=== PATIENT | male | born 1950 | race Caucasian/White ===

== ENCOUNTER 2020-08-11 14:03 | Inpatient (IN) | payer MEDICARE, SELFPAY ==
[2020-08-11] VITALS (7 sets, daily range): BP systolic 113–147; BP diastolic 60–94; PULSE 79–105; RESP 16–23; TEMP 35.8–36.6; O2SAT 96–100; BMI 26.6
--- NOTE | ~2020-08-11 | XR_ITS ---
EXAMINATION: XR abdomen NG/feed tube insert EXAM DATE: 08/13/2020 03:43 INDICATION: Nasogastric tube placement. TECHNIQUE: Frontal projection(s) of the abdomen for interpretation. Comparison is made to prior exami nation from 08/12/2020. FINDINGS: Feeding tube tip and side-port project over left upper quadrant, adequate. Multiple loops of significantly distended air-filled small and large bowel. There are mild bony degenerative changes . IMPRESSION: 1. Feeding tube in position. 2. Significantly distended air-filled small and large bowel. Reviewed, dictated and finalized at location A. 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
--- NOTE | ~2020-08-11 | CT_ITS ---
EXAMINATION: CT abdomen pelvis wo con DATE: 08/11/2020 15:27 INDICATION: Left lower quadrant abdominal pain. Constipation. TECHNIQUE: Computed tomography (CT) of the abdomen and pelvis was performed without intravenous contr ast. Automated exposure control and iterative reconstruction technique were employed. The dose-length product was 716.87 mGy-cm. COMPARISON: CT abdomen and pelvis 11/06/2003 FINDINGS: The visualized portions of lung bases demonstrate mild atelectasis. No pleural effusion. Th ere is left atrial enlargement of the heart. There are coronary artery calcifications. No pericardial effusion. There are numerous cysts in the liver measuring up to 2.8 cm. The gallbladder is distended . The spleen is normal. There are 3 cystic lesions in the pancreas measuring up to 10 mm. The adrenal glands are normal. Elem left kidney is absent. There are innumerable cysts and hemorrhagic cysts i n right kidney. There are multiple masses in right kidney measuring soft tissue attenuation measuring up to 2.9 cm. There are scattered parenchymal calcifications in right kidney. No hydronephrosis. The re is a transplant kidney in right iliac fossa. The prostate is mildly enlarged. There is an anastomo sis in the rectosigmoid. The majority of the colon is distended. The appendix is normal. There are mu ltiple dilated loops of small bowel. The distal sigmoid colon is small in caliber. There are no patho logically enlarged lymph nodes. There is a small volume of ascites. There is mild thoracolumbar spond ylosis. IMPRESSION: 1. Dilated small and large bowel with small caliber distal sigmoid colon suspicious for stricture, wh ich may be benign or malignant. 2. Polycystic kidney disease. Multiple indeterminate masses in right kidney are likely hemorrhagic cy sts, but solid neoplasm cannot be excluded. 3. Gallbladder distention, which may be secondary to fasting. Correlate with physical exam to exclude acute cholecystitis. 4. Small volume of ascites. Reviewed, dictated and finalized at location B. 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 Dilated small and large bowel with small caliber distal sigmoid colon suspic ious for stricture, which may be benign or malignant. 2. Polycystic kidney disease. Multiple indeterminate masses in right kidney are likely hemorrhagic cysts, but solid neoplasm cannot be excluded. 3. Gallbladder distention, which may be secondary to fasting. Correlate with ph ysical exam to exclude acute cholecystitis. 4. Small volume of ascites.
--- NOTE | ~2020-08-11 | XR_ITS ---
EXAMINATION: XR abdomen NG/feed tube insert DATE: 08/12/2020 11:53 INDICATION: Partial bowel obstruction. TECHNIQUE: A supine view of the abdomen was obtained. COMPARISON: CT abdomen and pelvis 08/11/2020 FINDINGS: The lower abdomen is excluded. There is dilated small and large bowel. The nasogastric tube tip is in the stomach. There are parenchymal calcifications in right kidney. IMPRESSION: 1. Nasogastric tube tip in the stomach. 2. Dilated small and large bowel, consistent with distal colonic obstruction. Reviewed, dictated and finalized at location B. 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
--- NOTE | 2020-08-11 14:28 | ECG_ITS ---
Measurements Intervals [place] Rate: 75 P: 42 PA: 159 QRS: -5 QRSD: 93 T: 13 QT: 400 QTc: 447 Interpretive Statements SINUS RHYTHM WITH MARKED RHYTHM IRREGULARITY, POSSIBLE NON-CONDUCTED PAC, SA BLOCK, AV BLOCK, OR SINUS PAUSE POSSIBLE LEFT ATRIAL ENLARGEMENT DELAYED PRECORDIAL R/S TRANSITION BORDERLINE T WAVE ABNORMALITY- INFERIOR LEADS BASELINE WANDER- I, II, AVR, AVL, V1 ABNORMAL ECG Electronically Signed On 08-11-2020 15:07:36 ROW BOSS HOEING by Omid Moreira D.O.
--- NOTE | 2020-08-11 14:31 | ED.ABDPAIN ---
HPI - Abdominal Pain General Chief Complaint: Weakness Stated Complaint: weakness, diarrhea, decreased appetite Time Seen by Provider: 08/11/20 14:09 Source: patient Mode of arrival: ambulatory Limitations: no limitations History of Present Illness HPI narrative: This patient is a 70 year old male with history of kidney transplant, DM who presents for evaluation of constipation and left lower abdominal pain. He reports for the last week he has had constipation. He took 1-2 days of an over the counter stool softener. He states he is having small episodes of loose stool, but it is not like diarrhea. He finally came to the ER today, because last night he was unable to get comfortable. He states he was up multiple times during the night due to discomfort to Left lower abdomen. He reports nausea and hiccups. He denies fever or chills. His pain is 5/10 Related Data Home Medications Medication Instructions Recorded Confirmed ergocalciferol (vitamin D2) 50,000 unit PO MONTHLY 08/11/20 08/11/20 lisinopril 5 mg PO DAILY 08/11/20 08/11/20 losartan 100 mg PO DAILY 08/11/20 08/11/20 metformin 1,000 mg PO DAILY 08/11/20 08/11/20 mycophenolate mofetil 500 mg PO Q12H 08/11/20 08/11/20 pravastatin 40 mg PO HS 08/11/20 08/11/20 prednisone 5 mg PO DAILY 08/11/20 08/11/20 tacrolimus 1 mg PO Q12H 08/11/20 08/11/20 warfarin 2 mg PO Q3-4D 08/11/20 08/11/20 warfarin 4 mg PO DAILY 08/11/20 08/11/20 Allergies Allergy/AdvReac Type Severity Reaction Status Date / Time Sulfa (Sulfonamide Allergy Unknown Unknown Verified 08/11/20 14:20 Antibiotics) Review of Systems Review of Systems: All systems reviewed & are unremarkable except as noted in HPI and below Constitutional: Constitutional: Denies chills, Denies fever(s) and Reports weakness Gastrointestinal: Gastrointestinal: Reports abdominal pain, Reports constipation, Reports diarrhea and Reports nausea PMFSH Past Medical History Medical History (Updated 08/11/20 @ 22:48 by Arielle Villalba MD) Diabetes mellitus Surgical History Surgical History (Updated 08/11/20 @ 14:35 by Arielle Villalba MD) Kidney transplant recipient Social History Social History Smoking status: Former smoker Alcohol intake: never Substance use: never Gender identity (if verbalized by the patient): Male Spiritual care concerns: No Exam Const: General: no acute distress and alert Orientation/consciousness: patient oriented x3 Resp: Effort & Inspection: normal respiratory effort and no retractions Auscultation: clear to auscultation bilaterally GI: Inspection: distended GI Palp: Yes Soft to palpation, Yes Tenderness to palpation present (GI) (LLQ) and No Guarding due to palpation present (GI) Auscultation: Hypoactive bowel sounds present Rectal Exam: hemorrhoids (no fecal impaction, no mass) Neuro: General: patient oriented x3, moves all extremities and CN's II-XI intact bilaterally Psych: Mental Status: mental status grossly normal Affect: normal affect Course Reevaluation(s) Reevaluation #1: I discussed with patient Ct shows stricture that is likely cause of his symptoms. He has not had colonoscopy in over 10 years. He is agreeable to observation and evaluation by GI. He request to stay at [facility] instead of transfer due to transplant. He will get his antirejection meds brought up to hospital. Date: 08/11/20 Time: 17:45 Consultations Consultation #1: I discussed case with Dr. Wayne. He states he will consult if hospitalist will admit. He will likely perform colonoscopy on patient. Date: 08/11/20 Time: 16:43 Consultation #2: I discussed case with Juany Hughes of hospitalist service. She accepts patient to service with GI consults. Date: 08/11/20 Time: 17:35 Vital Signs Vital signs: Vital Signs Temperature 96.4 F L 08/11/20 14:12 Pulse Rate 98 08/11/20 14:12 Respiratory Rate 18 08/11/20 14:12 Blood Pressure 140/94 H 08/11/20 14:12 Pulse Oximetr
[2020-08-11] MEDS: ONDANSETRON INJ 4 MG/2 ML VIAL IV PUSH (14:32)
[2020-08-11 14:43] LABS: Hematocrit 50.7 % (42.0-52.0); Hemoglobin 17.2 g/dL (14.0-18.0); Mean Corpuscular HGB Conc 33.9 g/dl (32-36); Mean Corpuscular Hemoglobin 29.5 pg (26-34); Mean Corpuscular Volume 86.8 fl (80-100); Mean Platelet Volume 12.1 fl (7.4-10.4); Platelet Count Result 236 k/mm3 (150-375); Red Blood Count 5.84 M/mm3 (4.6-6.20); Red Cell Distribution Width 13.2 % (11.5-14.5)
[2020-08-11 14:55] LABS: Alanine Aminotransferase 15 U/L (4-50); Albumin Level 3.7 g/dL (3.5-5.1); Alkaline Phosphatase 70 U/L (38-126); Anion Gap 11 mmol/L (8-16); Aspartate Amino Transferase 21 U/L (17-59); Bilirubin,Total 1.5 mg/dL (0.2-1.3); Blood Urea Nitrogen 29 mg/dL (9-20); Calcium 8.3 mg/dL (8.4-10.2); Carbon Dioxide 24 mmol/L (22-30); Chloride 96 mmol/L (98-107); Estimated CRCL calculation 59 ml/min; Estimated Glomerular Filt Rate > 60; Glucose 231 mg/dL (75-110); Lipase 40 U/L (23-300); Potassium 4.1 mmol/L (3.4-5.0); Sodium 131 mmol/L (137-145)
[2020-08-11] MEDS: SODIUM CHLORIDE 0.9% IV 1,000 ML 999 ML IV CONT (14:57)
[2020-08-11 15:11] LABS: Band Neutrophils Percent 18 % (0-6); Eosinophils Absolute Manual 0.06 K/mm3 (0.02-0.5); Eosinophils Percent Manual 1 % (0-4); Lymphocytes Absolute Manual 0.96 K/mm3 (1.1-4.5); Lymphocytes Percent Manual 16 % (18-44); Monocytes Percent Manual 25 % (3-9); Neutrophils Absolute Manual 3.48 K/mm3 (1.3-6.7); Neutrophils Percent Manual 40 % (46-73); Platelet Estimate Adequate (Adequate); Total Cells Counted 100
[2020-08-11 15:12] LABS: Atypical Lymphocytes Present; Ovalocytes 1+ (NORMAL)
[2020-08-11 15:20] LABS: Add Urine Microscopic? YES; Amorphous Sediment Urine Few; Appearance Urine Clear (Clear); Bacteria Urine Trace /hpf; Bilirubin Urine Negative (Negative); Blood Urine Negative (Negative); Color Urine Amber (Yellow); Glucose Urine UA Negative (Negative); Ketones Urine 1+ mg/dL (Negative); Leukocyte Esterase Ur Negative LEU/UL (Negative); Mucus Urine Rare /lpf; Nitrate Urine Negative (Negative); Protein Urine 1+ mg/dL (Negative); RBC Urine 0-2 /hpf (0-2); Squamous Epithelial Cell Urine Rare /hpf (Few)
[2020-08-11 15:34] LABS: Lactic Acid Reflex 1.6 mmol/L (0.7-2.1)
[2020-08-11] MEDS: SODIUM CHLORIDE 0.9% IV 1,000 ML 125 ML IV CONT (21:47)
--- NOTE | 2020-08-11 22:22 | PC.NURSE ---
This patient, Ryan Lopez, was admitted to Medical Room 245-. Patient/family oriented to hospital policies and general routines including ID bracelet, bed and alarms, visiting hours, pain management, procedures, bathroom and other care routines, personal items, smoking policy, room service/diet, and visiting hours. Information on how to activate the Rapid Response Team has been discussed. Patient/Family are encouraged to report perceived risks to care and to ask questions if they do not understand what they are told or what they should do. Transplant rejection drugs brought in from home.
[2020-08-11 23:34] LABS: Prothrombin Time 51.8 Seconds (11.1-14.7)
[2020-08-11 23:35] LABS: Partial Thromboplastin Time 66.9 SECONDS (22.3-36.8)
[2020-08-12] VITALS (8 sets, daily range): BP systolic 112–152; BP diastolic 55–68; PULSE 77–83; RESP 14–24; TEMP 36.3–37.1; O2SAT 94–100; BMI 26.6
[2020-08-12 00:07] LABS: INR 5.7
--- NOTE | 2020-08-12 00:45 | PM.IMHP ---
H&P: HPI History of Present Illness Date/Time: 08/11/20 23:00 Chief Complaint: abdominal pain Narrative: This is a pleasant 70 year old male with known history of renal transplant, DM, known to be chronically anticoagulated on warfarin after having a previous PE and presented to the hospital with a complaint of lower abdominal pain. The patient has had chronic diarrhea for over a year and had his metformin dose lowered at the end of June. He was initiated on insulin at that time and since then he has had constipation. He took OTC stool softeners and has had small episodes of loose stool over the past day. He complains that his abd discomfort has prevented him for being able to sleep at home and decided to come to the hospital. He denies any fever, chills, shortness of breath, cough, nasuea, vomiting, chest pain, palpitations, dysuria, hematuria, or decreased urine output. CT abd/pelvis revealed a dilated small and large bowel with small caliber distal sigmoid colon suspicious for stricture and gallbladder distention. ER providre has consulted Dr. Wayne, GI and we have been asked to admit the patient to the hospital for further evaluation. His last colonoscopy was in 2003. No other complaints tonight. Review of Systems Review of Systems: All systems reviewed & are unremarkable except as noted in HPI and below PMFSH Past Medical History Medical History (Updated 08/12/20 @ 05:30 by Benoit Odom MD) Diabetes mellitus Pulmonary embolism Surgical History Surgical History (Updated 08/12/20 @ 00:56 by Benoit Odom MD) Kidney transplant recipient Social History Social History Smoking status: Former smoker Alcohol intake: never Substance use: never Gender identity (if verbalized by the patient): Male Spiritual care concerns: No Meds Home Medications and Allergies Home Medications Medication Instructions Recorded Confirmed Type ergocalciferol (vitamin D2) 50,000 unit PO MONTHLY 08/11/20 08/11/20 History lisinopril 5 mg PO DAILY 08/11/20 08/11/20 History losartan 100 mg PO DAILY 08/11/20 08/11/20 History metformin 1,000 mg PO DAILY 08/11/20 08/11/20 History mycophenolate mofetil 500 mg PO Q12H 08/11/20 08/11/20 History pravastatin 40 mg PO HS 08/11/20 08/11/20 History prednisone 5 mg PO DAILY 08/11/20 08/11/20 History tacrolimus 1 mg PO Q12H 08/11/20 08/11/20 History warfarin 2 mg PO Q3-4D 08/11/20 08/11/20 History warfarin 4 mg PO DAILY 08/11/20 08/11/20 History Allergies Allergy/AdvReac Type Severity Reaction Status Date / Time Sulfa (Sulfonamide Allergy Unknown Unknown Verified 08/11/20 14:20 Antibiotics) Vital Signs Vital Signs - 24 hr 08/11/20 14:12 08/11/20 14:19 08/11/20 16:18 Temperature 35.8 C L Pulse Rate 98 98 105 H Respiratory Rate 18 23 H Blood Pressure 140/94 H 113/60 Pulse Oximetry 98 97 08/11/20 17:36 08/11/20 18:23 08/11/20 20:52 Temperature 36.6 C Pulse Rate 93 95 89 Respiratory Rate 18 18 20 Blood Pressure 122/66 120/75 147/66 H Pulse Oximetry 96 100 96 08/11/20 21:53 Temperature 36.6 C Pulse Rate 79 Respiratory Rate 16 Blood Pressure 133/66 Pulse Oximetry 99 Exam Const: General: cooperative, no acute distress, alert, awake and ill appearing chronically Nutritional Appearance: well nourished Orientation/consciousness: patient oriented x3 HENMT: Head: normal to inspection General nose exam: Normal external nose present Face and sinus: normal facial exam Mouth: Yes Normal oral and palatal mucosa present and Yes oropharynx normal Eyes: Pupils: Equal, round and reactive pupils present EOM: EOMs intact bilaterally Neck: Neck: supple and no JVD Thyroid: thyroid normal Lymphatic: lymphadenopathy not noted Resp: Effort & Inspection: normal respiratory effort Auscultation: clear to auscultation bilaterally Cardio: Rate: regular rate Rhythm: regular rhythm Heart sound
[2020-08-12] MEDS: MORPHINE SULFATE (*CRX) 2 MG/ML INJ IV PUSH (01:03)
[2020-08-12] MEDS: PHYTONADIONE INJ 10 MG/ML AMP 5 MG SUB-Q (03:29)
[2020-08-12 05:32] LABS: Hematocrit 47.2 % (42.0-52.0); Hemoglobin 15.8 g/dL (14.0-18.0); Mean Corpuscular HGB Conc 33.5 g/dl (32-36); Mean Corpuscular Hemoglobin 29.3 pg (26-34); Mean Corpuscular Volume 87.4 fl (80-100); Mean Platelet Volume 11.3 fl (7.4-10.4); Platelet Count Result 169 k/mm3 (150-375); Red Cell Distribution Width 13.1 % (11.5-14.5); White Blood Count 3.6 K/mm3 (4.5-10.0)
[2020-08-12 05:40] LABS: Alanine Aminotransferase 10 U/L (4-50); Alkaline Phosphatase 56 U/L (38-126); Anion Gap 10 mmol/L (8-16); Aspartate Amino Transferase 16 U/L (17-59); Bilirubin,Total 0.9 mg/dL (0.2-1.3); Blood Urea Nitrogen 29 mg/dL (9-20); Calcium 7.6 mg/dL (8.4-10.2); Carbon Dioxide 20 mmol/L (22-30); Chloride 102 mmol/L (98-107); Estimated CRCL calculation 64 ml/min; Estimated Glomerular Filt Rate > 60; Glucose 172 mg/dL (75-110); Potassium 4.2 mmol/L (3.4-5.0); Sodium 132 mmol/L (137-145)
[2020-08-12] MEDS: SODIUM CHLORIDE 0.9% IV 1,000 ML 125 ML IV CONT ×2 (05:52→16:02)
[2020-08-12 06:03] LABS: Glucose Point of Care 190 (65-105)
[2020-08-12 06:10] LABS: Band Neutrophils Percent 15 % (0-6); Basophils Absolute Manual 0.03 K/mm3 (0.0-0.1); Basophils Percent Manual 1 % (0-1); Eosinophils Absolute Manual 0.03 K/mm3 (0.02-0.5); Eosinophils Percent Manual 1 % (0-4); Lymphocytes Absolute Manual 0.93 K/mm3 (1.1-4.5); Monocytes Absolute Manual 0.28 K/mm3 (0.1-0.90); Monocytes Percent Manual 8 % (3-9); Neutrophils Percent Manual 49 % (46-73); Platelet Estimate Adequate (Adequate); Total Cells Counted 100
[2020-08-12] MEDS: SODIUM CHLORIDE 0.9% IV 500 ML 10 ML IV CONT (08:31)
[2020-08-12 08:37] LABS: Glucose Point of Care 193 (65-105)
--- NOTE | 2020-08-12 08:41 | WPDGICN ---
Assessment and Plan Assessment and plan (1) Bowel obstruction: Code(s): K56.609 - Unspecified intestinal obstruction, unspecified as to partial versus complete obstruction Status: Acute Assessment and Plan: Abnormal CT scan suggestive of bowel obstruction. This appears to match with physical findings. Plan is for flex sig today after enema cleansing. Further recommendations after endoscopy. NG tube may need to be placed to decompress the bowel. Patient does have a history of bowel resection for diverticular disease in hernia repair raising the question of adhesions. differential diagnosis also includes tumor masses except trip. This will be clarified By further evaluation (2) Renal transplant recipient: Code(s): Z94.0 - Kidney transplant status Status: Chronic (3) Supratherapeutic INR: Code(s): R79.1 - Abnormal coagulation profile Status: Acute Assessment and Plan: Elevated INR suggesting excess anticoagulation Coumadin will need to be held and dose of Coumadin re- evaluated. (4) History of pulmonary embolism: Code(s): Z86.711 - Personal history of pulmonary embolism Status: Acute GI Consult Note Consult date/time: 08/12/20 08:41 HPI: Ryan Lopez is a 70 year old male Seen in evaluation at the request of the emergency room. Patient has an underlying history of diabetes. Had a colon resection for diverticular disease many years ago. Over the last 1 year has had complaints of diarrhea. This was attributed to metformin. In June this was changed. He now is on insulin. Over last 1 month has had intermittent loose stools that have persisted. Associated with abdominal pain and cramping after eating. This has caused him to eat much less. Because of abdominal pain last evening he presented to the emergency room. A CT scan was performed revealing dilatation of the small and large bowel suggesting bowel obstruction. There was relative collapse of the rectal area. Patient denies any bleeding or weight loss. As stated past history is significant for colon resection because of diverticular disease. Patient has a past medical history of pulmonary embolus for which she remains on Coumadin anticoagulation. Patient has a history of kidney transplant in 2003. He also had hernia repair at that time. Family history is noncontributory. Review of Systems Review of Systems: All systems reviewed & are unremarkable except as noted in HPI and below PMFSH Past Medical History Medical History Diabetes mellitus Pulmonary embolism Surgical History Surgical History (Updated 08/12/20 @ 00:56 by Benoit Odom MD) Kidney transplant recipient Social History Social History Smoking status: Former smoker Alcohol intake: never Substance use: never Gender identity (if verbalized by the patient): Male Spiritual care concerns: No Meds Home Medications and Allergies Home Medications Medication Instructions Recorded Confirmed Type ergocalciferol (vitamin D2) 50,000 unit PO MONTHLY 08/11/20 08/11/20 History lisinopril 5 mg PO DAILY 08/11/20 08/11/20 History losartan 100 mg PO DAILY 08/11/20 08/11/20 History metformin 1,000 mg PO DAILY 08/11/20 08/11/20 History mycophenolate mofetil 500 mg PO Q12H 08/11/20 08/11/20 History pravastatin 40 mg PO HS 08/11/20 08/11/20 History prednisone 5 mg PO DAILY 08/11/20 08/11/20 History tacrolimus 1 mg PO Q12H 08/11/20 08/11/20 History warfarin 2 mg PO Q3-4D 08/11/20 08/11/20 History warfarin 4 mg PO DAILY 08/11/20 08/11/20 History Allergies Allergy/AdvReac Type Severity Reaction Status Date / Time Sulfa (Sulfonamide Allergy Unknown Unknown Verified 08/11/20 14:20 Antibiotics) Vital Signs Vital Signs - 24 hr 08/11/20 14:12 08/11/20 14:19 08/11/20 16:18 Temperature 96.4 F L Pulse R
--- NOTE | 2020-08-12 08:58 | PHAR ---
HOME MED mycophenolate mofetiL 500 MG TAB HAS BEEN VERIFIED. REESE TAB #265 IN HOME MED TRAY.
[2020-08-12 10:23] LABS: Prothrombin Time 67.7 Seconds (11.1-14.7)
[2020-08-12 10:37] LABS: INR 8.2
--- NOTE | 2020-08-12 11:12 | PHAR ---
The patient's home med of Tacrolimus 1 mg Capsule has been verified. It's in a separate pill bottle, not in the weekly med organizer.
--- NOTE | 2020-08-12 11:35 | PM.CNGS ---
Assessment and Plan Assessment and plan (1) Mass of colon: Code(s): K63.89 - Other specified diseases of intestine Status: Acute Assessment and Plan: CT scan reviewed and showed evidence of dilated small and large bowel to an area in the sigmoid colon that appeared concerning for a stricture. GI performed flexible sigmoidoscopy today and found a nearly-obstructing large, fungating, villous mass 20 cm from the anus. Biopsies were taken and are pending. The patient is not having any bowel function and reportedly has not for over a week. The patient is at high risk for having surgical complications since he is a kidney transplant recipient on anti-rejection medication. He is also at risk of rejecting his transplant while holding his medications here. This being said, we would recommend transfer to [place] where he received his transplant, where he could be monitored by his transplant team and also where they may be able to offer other surgical interventions, such as colonic stenting to help decompress his bowel to prepare for surgery. Therefore, it would ultimately be more risky for the patient to be treated here and he would likely require a colostomy if surgery were done at this facility. I discussed this with the Hospitalist who will work on initiating transfer. For now, we will continue NG tube decompression, bowel rest, IV fluids, and analgesics. We will continue to monitor the patient with serial abdominal exams and follow along until he is able to be transferred. Thank you for allowing us to see the patient in consultation. (2) Bowel obstruction: Code(s): K56.609 - Unspecified intestinal obstruction, unspecified as to partial versus complete obstruction Status: Acute Assessment and Plan: Secondary to #1 above. Continue NG tube decompression, bowel rest, IV fluids, and analgesics. (3) Supratherapeutic INR: Code(s): R79.1 - Abnormal coagulation profile Status: Acute Assessment and Plan: INR 8.2 this morning. Continue to hold warfarin. One dose of vitamin K given this morning. Management per Hospitalist. Monitor labs and awaiting transfer. (4) Renal transplant recipient: Code(s): Z94.0 - Kidney transplant status Status: Chronic Assessment and Plan: Increases risks with surgery. Recommending transfer to [place] where his transplant team is located. See plan above. (5) PCK (polycystic kidney disease): Code(s): Q61.3 - Polycystic kidney, unspecified Status: Chronic (6) Anticoagulant long-term use: Code(s): Z79.01 - [facility]FP (current) use of anticoagulants Status: Acute Assessment and Plan: Warfarin on hold. On anticoagulation for history of DVT and PEs. (7) History of pulmonary embolism: Code(s): Z86.711 - Personal history of pulmonary embolism Status: Acute Additional Plan Discussed the patient's case and formulated plan of care with Dr. Renteria. History of Present Illness Consult details Consult date: 08/12/20 Reason for consult: other (Sigmoid colon mass with bowel obstruction) Requesting physician: Nehemias Wayne MD Narrative: This is a 70-year-old male with a history of congenital polycystic kidney disease status post kidney transplant, insulin-dependent diabetes mellitus, and history of DVT/PE on chronic anticoagulation, who presented to the ER with complaints of abdominal pain, bloating, and weakness. The patient reports that over the past year he has had intermittent mild generalized abdominal pain and persistent bloating. He has also dealt with diarrhea for the past year, but he related this to his metformin. A few months ago he was able to see his PCP, who put him on insulin and changed his metformin dose. After this, he has dealt with constipation and liquid stools. For the past week, he has become more fatigued and had a decreased appetite with intermittent nausea. He denies vomiting. He reports that he had not had a
[2020-08-12 11:55] LABS: Glucose Point of Care 201 (65-105)
[2020-08-12] MEDS: INSULIN ASPART (*BKC) 100 UNITS/ML SUB-Q (12:57)
--- NOTE | 2020-08-12 15:56 | PM.IMPN ---
Progress Note: A&P Assessment and Plan (1) Mass of colon: Code(s): K63.89 - Other specified diseases of intestine Status: Acute Assessment and Plan: Patient underwent flexible sigmoidoscopy today by Dr. Wayne which showed a nearly obstructing large, fungating, villous mass 20 cm from the anal verge. Gastroenterology and general surgery are following and input is appreciated Biopsies taken and are pending I have placed a call to the transfer line at [facility]. Given his history of organ transplantation, it has been recommended that he be transferred to tertiary care facility where his transplant team is located. I am awaiting call back from colorectal surgeon at [facility]. Transfer will allow him to have other surgical options available, such as colonic stenting to help decompress his bowel for surgery. (2) Bowel obstruction: Code(s): K56.609 - Unspecified intestinal obstruction, unspecified as to partial versus complete obstruction Status: Acute Assessment and Plan: Patient presented with absence of bowel function and had not had any bowel movements for [address] abdomen/pelvis showed dilated small and large bowel with small caliber distal sigmoid colon suspicious for stricture . Underwent flexible sigmoidoscopy as above. 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 He takes 4 mg warfarin daily x3 days then takes 2 mg on the 4th day. INR elevated at 5.7 on arrival. 5 mg vitamin K. INR increased despite vitamin K up to 8.2. No evidence of bleeding at this time. Warfarin is being held Will hold off on vitamin K at this time as he is not bleeding and there are no current plans for surgery. Will discuss with accepting physician upon transfer to determine if vitamin K will be indicated at that time. Monitor PT/INR daily (4) Diabetes mellitus: Code(s): E11.9 - Type 2 diabetes mellitus without complications Status: Inactive Assessment and Plan: No prior A1c available for review. Blood sugars have been slightly elevated above target today. Continue Accuchecks, SSI Coverage, hypoglycemic protocol. Check updated A1c Hold metformin (5) Renal transplant recipient: Code(s): Z94.0 - Kidney transplant status Status: Chronic Assessment and Plan: Patient underwent right renal transplant in 2004 for history polycystic kidney disease. His left kidney was removed in the 70s. His transplant was done at [facility], however he is not able to recall the name of the surgeon. States that they have retired since that time. He reports he does follow-up with a supervisor soldering at [facility] yearly, however he cannot recall the name of this provider. He is on CellCept and tacrolimus for anti rejection. CellCept and tacrolimus on hold while NPO. Given history, planning for transfer to [facility] as noted above. 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 He reports that he is feeling fairly well at this time. He reports abdominal pain that he describes as a pressure/fullness sensation and rates as a 7/10. He also endorses sore throat related to his NG tube. He feels that his abdomen is bloated. He is not passing gas. He has been constipated for several days prior to arrival. He has poor appetite. He is currently NPO with NG decomp
[2020-08-12 18:56] LABS: Glucose Point of Care 159 (65-105)
[2020-08-13 00:21] LABS: Glucose Point of Care 175 (65-105)
[2020-08-13 05:01] VITALS: BP 144/60; PULSE 81; RESP 16; TEMP 36.6; O2SAT 97
[2020-08-13 05:31] LABS: Basophils Absolute Auto 0.1 K/mm3 (0.0-0.1); Basophils Percent Auto 2.3 % (0.2-1.2); Eosinophils Absolute Auto 0.1 K/mm3 (0-0.3); Eosinophils Percent Auto 1.7 % (0-4.4); Immature Granulocyte Absolute 0.06 K/mm3 (0.00-0.031); Immature Granulocyte Percent A 1.7 % (0-0.5); Lymphocytes Absolute Auto 0.35 K/mm3 (0.9-3.2); Lymphocytes Percent Auto 10.2 % (18.3-44.2); Mean Corpuscular HGB Conc 32.6 g/dl (32-36); Mean Corpuscular Hemoglobin 28.1 pg (26-34); Mean Corpuscular Volume 86.1 fl (80-100); Mean Platelet Volume 11.2 fl (7.4-10.4); Monocytes Absolute Auto 0.9 K/mm3 (0.1-0.6); Monocytes Percent Auto 25.4 % (2.6-8.5); Neutrophils Percent Auto 58.7 % (45.5-73.1); Platelet Count Result 205 k/mm3 (150-375); Red Blood Count 5.34 M/mm3 (4.6-6.20); Red Cell Distribution Width 13.2 % (11.5-14.5); White Blood Count 3.4 K/mm3 (4.5-10.0)
[2020-08-13 05:33] LABS: Glucose Point of Care 191 (65-105)
[2020-08-13 05:48] LABS: Anion Gap 13 mmol/L (8-16); Blood Urea Nitrogen 28 mg/dL (9-20); Calcium 7.6 mg/dL (8.4-10.2); Carbon Dioxide 16 mmol/L (22-30); Chloride 105 mmol/L (98-107); Estimated CRCL calculation 71 ml/min; Estimated Glomerular Filt Rate > 60; Glucose 189 mg/dL (75-110); Potassium 4.2 mmol/L (3.4-5.0); Sodium 134 mmol/L (137-145)
--- NOTE | 2020-08-13 07:20 | PM.TDS ---
Transfer Discharge Sum: Prov Provider Date of admission: 08/12/20 10:20 Primary care physician: Simone Rodriguez MD Admitting clinician: Rossy Fiore MD Consults: 08/11/20 18:10 Consult to Physician Routine Comment: Consulting Provider: Nehemias Wayne Reason for consultation: sigmoid bowel stricture Has provider been notified: Yes 08/12/20 Consult to Physician Routine Comment: Spoke to Pauly @ 09:34am (,[place]) Consulting Provider: Chiki Renteria scalloper/MD group to consult: surgery Reason for consultation: bowel obstruction Has provider been notified: Yes DS: Admitting Diagnosis Admitting Diagnosis Admitting Diagnosis: bowel obstruction DS: Discharge Diagnosis Discharge Diagnosis (1) Mass of colon: Code(s): K63.89 - Other specified diseases of intestine Status: Acute Assessment and Plan: Patient underwent flexible sigmoidoscopy on 08/12/[address] Wayne which showed a nearly obstructing large, fungating, villous mass in the rectosigmoid, 20 cm from the anal verge. Gastroenterology and general surgery are following and input is appreciated Biopsies taken and are pending I have placed a call to the transfer line at [facility]. Given his history of organ transplantation, it has been recommended that he be transferred to tertiary care facility where his transplant team is located. I am awaiting call back from colorectal surgeon at [facility]. Transfer will allow him to have other surgical options available, such as colonic stenting to help decompress his bowel for surgery. -- Patient was accepted for transfer to [facility] by Dr. Richmond with colorectal surgery. He was transferred on 08/13/20 at approximately 0530in hemodynamically stable condition. (2) Bowel obstruction: Code(s): K56.609 - Unspecified intestinal obstruction, unspecified as to partial versus complete obstruction Status: Acute Assessment and Plan: Patient presented with absence of bowel function and had not had any bowel movements for [address] abdomen/pelvis showed dilated small and large bowel with small caliber distal sigmoid colon suspicious for stricture . Underwent flexible sigmoidoscopy as above. 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 He takes 4 mg warfarin daily x3 days then takes 2 mg on the 4th day. INR elevated at 5.7 on arrival. 5 mg vitamin K. INR increased despite vitamin K up to 8.2. No evidence of bleeding at this time. Warfarin is being held Will hold off on vitamin K at this time as he is not bleeding and there are no current plans for surgery. Will discuss with accepting physician upon transfer to determine if vitamin K will be indicated at that time. --- Discussed with Dr. Richmond who did not wish for patient to receive additional dose of Vitamin K. They will monitor INR upon arrival to [facility] Monitor PT/INR daily (4) Diabetes mellitus: Code(s): E11.9 - Type 2 diabetes mellitus without complications Status: Inactive Assessment and Plan: No prior A1c available for review. Blood sugars have been slightly elevated above target today. Continue Accuchecks, SSI Coverage, hypoglycemic protocol. Check updated A1c Hold metformin (5) Renal transplant recipient: Code(s): Z94.0 - Kidney transplant status Status: Chronic Assessment and Plan: Patient underwent right renal transplant in 2004 for history polycystic kidney disease. His left kidney was removed in the 70s. His transplant was done at [facility], however he is not able to recall the name of the surgeon. States that they have retired since that time.
== END 2020-08-13 05:45 | disposition short-term general hospital (02) | DRG 375 ==
LOC: ANHED 14:28 → ANH2MED 20:46
PROVIDERS: Internal Medicine Gastroenterology; Physician Assistant; Admitting Provider Internal Medicine; Emergency Provider General Practice; PCP Family Medicine Adolescent Medicine; Visit Provider Internal Medicine
PROC: 0DJD8ZZ Inspection of Lower Intestinal Tract, Via Natural or Artificial Opening Endoscopic (ICD-10-PCS; CPT 45330; principal; 2020-08-12 08:30)
DX: C19 Malignant neoplasm of rectosigmoid junction (principal); K56.690 Other partial intestinal obstruction; Z94.0 Kidney transplant status; Q61.3 Polycystic kidney, unspecified; K59.00 Constipation, unspecified; K64.8 Other hemorrhoids; E11.9 Type 2 diabetes mellitus without complications; Z87.891 Personal history of nicotine dependence; R79.1 Abnormal coagulation profile; Z79.01 Long term (current) use of anticoagulants; T45.515A Adverse effect of anticoagulants, initial encounter; Z86.711 Personal history of pulmonary embolism; Z86.718 Personal history of other venous thrombosis and embolism
CPT/HCPCS: 36415; 74176; 80048; 80053; 81001; 83605; 83690; 85025; 85610; 85730; 88305; 93005; 96361; 96365; 96372; 96375; 99285; A9270; G0378; J0131; J1815; J2270; J2405; J2704; J3430; J7030; J7040; J7120